=== PATIENT | female | born 1945 | race Caucasian/White ===

== ENCOUNTER 2023-01-23 06:35 | Day surgery (SDC) | payer OTHER ==
[2023-01-23] VITALS (12 sets, daily range): BP systolic 99–145; BP diastolic 59–81
[~2023-01-23] VITALS: Ht 167.6 cm; Wt 63.0 kg
[2023-01-23] MEDS ORDERED: LORazepam 0.5 MG tablet PO PRN (07:10)
[2023-01-23] MEDS ORDERED: normal saline 1,000 ML IV SCH (07:10)
[2023-01-23] MEDS ORDERED: diphenhydrAMINE 25mg capsule PO PRN (07:10)
[2023-01-23] MEDS ORDERED: verapamil 2.5 mg/ml inj IV ONE (07:17)
[2023-01-23] MEDS ORDERED: nitroGLYCERIN-Tridil 50MG/D5W 250 ML IV ONE (07:17)
[2023-01-23] MEDS ORDERED: midazolam 1 mg/ML 2ml injection ONE (07:17)
[2023-01-23] MEDS ORDERED: fentaNYL/PF 50MCG/1 ML 2ML syringe ONE (07:17)
[2023-01-23] MEDS ORDERED: iohexol 350 MG/ML 50ML vial IV ONE ×2 (07:18→08:45)
[2023-01-23] MEDS ORDERED: LIDOcaine 1% (10mg/ml) 2ml vial ONE (07:18)
[2023-01-23] MEDS ORDERED: iohexol 350MG/ML 100ml bottle IV ONE ×2 (07:18→08:43)
[2023-01-23] MEDS ORDERED: heparin 1,000unit/ml 10ml vial 10 ML ONE (07:18)
[2023-01-23] MEDS ORDERED: CHOL500050 PO (07:40)
[2023-01-23] MEDS ORDERED: VITC500T PO (07:40)
[2023-01-23] MEDS ORDERED: COLL1CAP (07:40)
[2023-01-23] MEDS ORDERED: UBID100C16 PO (07:40)
[2023-01-23] MEDS ORDERED: TURM500C4 PO (07:40)
[2023-01-23] MEDS ORDERED: ASPI-1265 PO (07:40)
[2023-01-23] MEDS ORDERED: AMLO5TAB10 (07:40)
[2023-01-23] MEDS ORDERED: OMEG-86 (07:40)
[2023-01-23] MEDS ORDERED: BACI1TAB3 (07:40)
[2023-01-23] MEDS ORDERED: ATOR40TA PO (07:40)
[2023-01-23] MEDS ORDERED: LIDOcaine 1% 30ml preserv. free vial ONE (08:35)
== END 2023-01-23 15:15 | disposition home or self-care (01) ==
LOC: SSTAY O 06:35
PROVIDERS: ATTEND Internal Medicine Cardiovascular Disease
DX: R06.09 Other forms of dyspnea (principal); I25.10 Atherosclerotic heart disease of native coronary artery without angina pectoris; I08.1 Rheumatic disorders of both mitral and tricuspid valves; I10 Essential (primary) hypertension; E78.5 Hyperlipidemia, unspecified; Z86.73 Personal history of transient ischemic attack (TIA), and cerebral infarction without residual deficits; Z88.0 Allergy status to penicillin; Z79.899 Other long term (current) drug therapy
CPT/HCPCS: 76937; 93005; 93458; 99152; 99153; C1760; C1769; C1894; J1644; J2250; J3010; J3490; J7030; Q0163; Q9967; A6258; A6402; C1725